=== PATIENT | female | born 1975 | race Caucasian/White ===

== ENCOUNTER → 2016-11-20 22:00 | Emergency (ER) | payer OTHER ==
[~2016-11-20 22:00] MED LIST: AMOXICILLIN500 M1 PO; ANEXSIA 5/325 M1 TA1 PO; FLEXERIL PO; LORTAB 5/500 TA1 TA1 PO; METFORMIN HCL500 M1 PO; MOTRIN600 M1 PO; VOLTAREN50 MG PO
== END | disposition home or self-care (01) ==
LOC: CED 22:00
DX: H66.91 Otitis media, unspecified, right ear (principal); E11.9 Type 2 diabetes mellitus without complications; F32.9 Major depressive disorder, single episode, unspecified; Z88.8 Allergy status to other drugs, medicaments and biological substances
CPT/HCPCS: 99282